=== PATIENT | female | born 1945 | race Caucasian/White ===

== ENCOUNTER 2020-03-06 15:35 | Emergency (ER) | payer MEDICARE, SELFPAY ==
[2020-03-06 15:42] VITALS: BP 156/72; PULSE 95; RESP 18; TEMP 37.1; O2SAT 100
[2020-03-06 15:54] VITALS: PULSE 95
[2020-03-06 16:02] VITALS: BP 144/71; PULSE 80; RESP 16; O2SAT 100
--- NOTE | 2020-03-06 16:47 | ED.GENADULT ---
HPI - General Adult General Chief complaint: Unspecified Stated complaint: ear pain, feel weird Time Seen by Provider: 03/06/20 16:24 History of Present Illness HPI narrative: She was at the pharmacy when she straightened up after bending over and suddnely began to feel strange. She says that she could feel her heart beat in her ear and she got dizzy. This lasted about 30 minutes. She was able to drive herself home while this was happening. She has had 1 previous episode, which was diagnosed as anxiety. Related Data Home Medications Medication Instructions Recorded Confirmed latanoprost 0.005 % eye drops 1 drop EACH EYE DAILY 06/12/19 brimonidine 0.1 % eye drops 1 drop EACH EYE Q8H 09/05/19 09/05/19 netarsudil 0.02 % eye drops 1 drop EACH EYE QPM 09/05/19 09/05/19 Allergies Allergy/AdvReac Type Severity Reaction Status Date / Time lidocaine Allergy Severe SWELLING Verified 03/06/20 15:51 Review of Systems Review of Systems: All systems reviewed & are unremarkable except as noted in HPI and below Constitutional: Constitutional: Denies fever(s) ENT: Reports dizziness and Denies sore throat Cardiovascular: Cardiovascular: Denies chest pain Respiratory: Respiratory: Denies dyspnea Gastrointestinal: Gastrointestinal: Denies abdominal pain Neurologic: Denies syncope, Denies headache(s) and Denies weakness Psychiatric: Psychiatric: Reports anxiety PMFSH Past Medical History Medical History Glaucoma Varicosities of leg Surgical History Surgical History H/O colectomy Family History Family History Mother Family history of obesity Hypertension Sibling Carcinoma of colon Father Family history of coronary artery disease Social History Social History Smoking status: Never smoker Second hand tobacco smoke exposure: No Alcohol intake: current Exam Const: General: healthy appearing, no acute distress and alert Orientation/consciousness: patient oriented x3 HENMT: Head: normal to inspection Ears: external ears normal, TM's normal bilaterally and EAC's normal Eyes: Pupils: Equal, round and reactive pupils present EOM: EOMs intact bilaterally Neck: Neck: normal visual inspection and no lymphadenopathy Chest: Chest palpation & inspection: no tenderness Resp: Effort & Inspection: normal respiratory effort Auscultation: clear to auscultation bilaterally, no rales, no rhonchi and no wheezes Cardio: Jugular venous distension: no JVD Rate: regular rate Rhythm: regular rhythm Heart sounds: no murmurs GI: Inspection: non-distended GI Palp: Yes Soft to palpation and No Tenderness to palpation present (GI) Skin: General skin exam: normal color Neuro: General: patient oriented x3 and moves all extremities Speech: normal speech Extrem: General: no edema Psych: Appearance: well kempt Affect: normal affect Course Vital Signs Vital signs: Vital Signs Temperature 37.1 C 03/06/20 15:42 Pulse Rate 95 03/06/20 15:42 Respiratory Rate 18 03/06/20 15:42 Blood Pressure 156/72 H 03/06/20 15:42 Pulse Oximetry 100 03/06/20 15:42 Temperature 37.1 C 03/06/20 15:42 Pulse Rate 76 03/06/20 17:04 Respiratory Rate 18 03/06/20 17:04 Blood Pressure 150/80 H 03/06/20 17:04 Pulse Oximetry 99 03/06/20 17:04 Medical Decision Making MDM Narrative Medical decision making narrative: It sounds like she became light headed upon standing and possibly provoked an axiety attack. She was asyptomatic before her arrival here and I do not feel that she needs further workup at this time. Medical Records Medical records reviewed: Yes I reviewed the patient's medical records. Vital Signs Vital Signs: Vital Signs Temperature 37.1 C 03/06/20 15:42 Puls
[2020-03-06 17:04] VITALS: BP 150/80; PULSE 76; RESP 18; O2SAT 99
== END 2020-03-06 17:05 | disposition home or self-care (01) ==
PROVIDERS: Emergency Provider Emergency Medicine; PCP Family Medicine
DX: R42 Dizziness and giddiness (principal); H40.9 Unspecified glaucoma; Z90.49 Acquired absence of other specified parts of digestive tract
CPT/HCPCS: 99281

== ENCOUNTER 2020-04-14 07:48 | Outpatient (CLI) | payer MEDICARE, SELFPAY ==
--- NOTE | ~2020-04-14 | CT_ITS ---
EXAMINATION: CT abdomen pelvis w con INDICATION: Unspecified abdominal pain TECHNIQUE: Computed tomographic images of the abdomen and pelvis were obtained after the administrati on of 100 cc of Omnipaque 350 intravenous contrast. The dose-length product (DLP) was 665.38 mGy-cm. Automated exposure control and iterative reconstruction technique were employed. COMPARISON: 02/17/2018 FINDINGS: There are unchanged tiny nodules of the right lower lobe, most consistent with old granulom atous disease. The heart size is normal. There is a small sliding hiatal hernia. The gallbladder is s urgically absent. The liver, spleen, pancreas, and adrenal glands are normal. Cysts of the kidneys me asure up to 4.3 cm on the left. There is a 1.8 cm soft tissue density mass of the left mid kidney. No pathologically enlarged abdominal or pelvic lymph nodes are identified. There is no free intraperito marisabel gas or evidence of bowel obstruction. The appendix is normal. There is subtle edematous pericol ic fat stranding adjacent to the ascending colon. Colonic diverticulosis is noted. There is mild lumb ar spondylosis. There are tiny fat-containing periumbilical hernias. IMPRESSION: 1. Subtle fat stranding adjacent to the ascending colon which could reflect mild uncomplicated divert iculitis. 2. Indeterminate lesion of the left mid kidney which could reflect proteinaceous cyst versus neoplasm . Follow-up with CT or MRI without and with contrast is recommended. Reviewed, dictated and finalized at location B. IMPRESSION: 1. Subtle fat stranding adjacent to the ascending colon which could reflect mil d uncomplicated diverticulitis. 2. Indeterminate lesion of the left mid kidney which could reflect proteinaceou s cyst versus neoplasm. Follow-up with CT or MRI without and with contrast is r ecommended.
== END 2020-04-14 07:49 | disposition home or self-care (01) ==
PROVIDERS: PCP Family Medicine; Visit Provider Physician Assistant
DX: R10.9 Unspecified abdominal pain (principal); N28.89 Other specified disorders of kidney and ureter
CPT/HCPCS: 74177; Q9967

== ENCOUNTER 2020-05-21 08:59 | Observation (INO) | payer MEDICARE, SELFPAY ==
[2020-05-21] VITALS (9 sets, daily range): BP systolic 125–161; BP diastolic 61–77; PULSE 68–101; RESP 15–19; TEMP 36.2–37.2; O2SAT 97–100; BMI 34.4
--- NOTE | ~2020-05-21 | CT_ITS ---
EXAMINATION: CT abdomen pelvis w con DATE: 05/21/2020 09:46 INDICATION: Abdominal pain TECHNIQUE: Computed tomography (CT) of the abdomen and pelvis was performed with 100 mL Omnipaque-350 intravenous contrast. Automated exposure control and iterative reconstruction technique were employe d. The dose-length product was 754.18 mGy-cm. COMPARISON: 04/14/2020 and 02/17/2018 FINDINGS: Stable appearance of a cluster small chronic nodules in the posterior basilar right lower lobe likely infectious/inflammatory in etiology. Heart size is normal. No pericardial or pleural effusion. Kristina cystectomy clips at the gallbladder fossa. Liver, spleen, pancreas and bilateral adrenal glands are n ormal. Bilateral renal cysts, the largest measuring 4.3 cm on the left. No interval change in a 1.8 c m soft tissue density left renal lesion indeterminate for complex cyst versus solid neoplasm. Normal appendix. Moderate scattered diverticulosis including along the sigmoid colon where there is asymmetr ic wall thickening and inflammatory stranding along the posterior wall consistent with diverticulitis . Small bowel is normal with no obstruction. Bladder is normal. The uterus is not identified and has likely been surgically resected. No abscess or free intraperitoneal gas or fluid. No pathologically e nlarged abdominal or pelvic lymphadenopathy. T11 and T12 hemangiomas. Chronic T2 compression fracture with mild anterior wedging and more prominent depression of the central endplate. IMPRESSION: 1. Worsening but still radiographically uncomplicated diverticulitis along the ascending colon with i ncrease in degree of wall thickening and inflammatory stranding. 2. Unchanged indeterminate 1.8 cm left renal lesion statistically most likely to represent a proteina ceous/hemorrhagic cyst but differential includes renal cell carcinoma and would recommend follow-up p re and postcontrast MRI or CT. Reviewed, dictated and finalized at location B. IMPRESSION: 1. Worsening but still radiographically uncomplicated diverticulitis along the ascending colon with increase in degree of wall thickening and inflammatory str anding. 2. Unchanged indeterminate 1.8 cm left renal lesion statistically most likely t o represent a proteinaceous/hemorrhagic cyst but differential includes renal ce ll carcinoma and would recommend follow-up pre and postcontrast MRI or CT.
--- NOTE | 2020-05-21 09:23 | ED.ABDPAIN ---
HPI - Abdominal Pain General Chief Complaint: Abdominal Pain Stated Complaint: abd pain Time Seen by Provider: 05/21/20 09:00 Source: RN notes reviewed History of Present Illness HPI narrative: Patient presents emergency department from home for abdominal pain. Patient states symptoms began yesterday. Pain is located in the right lower abdomen and does not radiate described as cramping in nature. Patient states she is had diverticulitis 4 times since February and this feels like previous diverticulitis. She denies any fevers or chills chest pain shortness of breath nausea vomiting diarrhea or any other symptoms. She states that her diverticulitis has been managed by Dr. Allen. Her last colonoscopy was approximately 6 years ago Related Data Home Medications Medication Instructions Recorded Confirmed latanoprost 0.005 % eye drops 1 drop EACH EYE DAILY 06/12/19 05/21/20 brimonidine 0.1 % eye drops 1 drop EACH EYE Q8H 09/05/19 05/21/20 netarsudil 0.02 % eye drops 1 drop EACH EYE QPM 09/05/19 05/21/20 Allergies Allergy/AdvReac Type Severity Reaction Status Date / Time lidocaine Allergy Severe SWELLING Verified 05/21/20 09:16 Review of Systems Review of Systems: Narrative: Gen.: Denies fevers or chills ENT: Denies congestion Respiratory: Denies shortness of breath or cough CV: Denies chest pain or palpitations GI: See HPI denies burning, urgency, frequency or hematuria Musculoskeletal: Denies back pain or muscle pain Neuro: Denies numbness, tingling, weakness or focal weakness Skin: Denies rash Except as documented, all other systems reviewed and negative [facility] Past Medical History Medical History Diverticulitis Glaucoma Varicosities of leg Surgical History Surgical History H/O colectomy Family History Family History Mother Family history of obesity Hypertension Sibling Carcinoma of colon Father Family history of coronary artery disease Social History Social History Smoking status: Never smoker Second hand tobacco smoke exposure: No Alcohol intake: current Gender identity (if verbalized by the patient): Female Exam Narrative: Exam Narrative: APPEARANCE: No acute distress, nontoxic, resting in bed HEENT: Normocephalic, atraumatic, OMM RESPIRATORY: No respiratory distress, clear to auscultation bilaterally with no rhonchi wheezing or rales CARDIOVASCULAR: RRR s murmur ABDOMINAL: Soft, nondistended, tender palpation right lower quadrant, no tenderness in right upper quadrant, left upper quadrant left lower quadrant no rebound or guarding MUSCULOSKELETAl: Moves all extremities. No clubbing, cyanosis or edema. NEURO: Awake and alert. Following commands, speech normal, no focal deficits SKIN:: Warm, dry. Normal Color PSYCHIATRIC: Normal affect/mood Course Course Emergency Course: Reviewed old records. [facility] for diverticul[facility] on April 15. Last colonoscopy was in 2012 Dr Hernandez presentation work-up. Agrees with admission at this time with consult to GI Discussed with patient and family results of workup and diagnosis. Discussed need for admission. Patient and family understand and agree to current treatment plan Vital Signs Vital signs: Vital Signs Temperature 99.0 F 05/21/20 09:11 Pulse Rate 101 H 05/21/20 09:11 Respiratory Rate 18 05/21/20 09:11 Blood Pressure 161/77 H 05/21/20 09:11 Pulse Oximetry 98 05/21/20 09:11 Temperature 99.0 F 05/21/20 09:11 Pulse Rate 76 05/21/20 10:46 Respiratory Rate 18 05/21/20 09:11 Blood Pressure 138/69 05/21/20 10:46 Pulse Oximetry 98 05/21/20 10:46 MDM - Abdominal Pain Lab Data Result diagrams: 05/21/20 09:26 05/21/20 09:41 Labs:
[2020-05-21] MEDS: SODIUM CHLORIDE 0.9% IV 1,000 ML 999 ML IV CONT (09:24)
[2020-05-21 09:37] LABS: Hematocrit 40.6 % (37.0-47.0); Hemoglobin 13.8 g/dL (12.0-15.0); Mean Corpuscular Volume 88.3 fl (80-100); Mean Platelet Volume 9.7 fl (7.4-10.4); Platelet Count Result 386 k/mm3 (150-375); Red Cell Distribution Width 12.8 % (11.5-14.5)
[2020-05-21 09:42] LABS: Estimated CRCL calculation 48 ml/min; Estimated Glomerular Filt Rate > 60
[2020-05-21 09:47] LABS: Atypical Lymphocytes Present; Band Neutrophils Percent 1 % (0-6); Monocytes Percent Manual 6 % (3-9); Neutrophils Percent Manual 89 % (46-73); Platelet Estimate Adequate (Adequate); Total Cells Counted 100
[2020-05-21 09:48] LABS: Alanine Aminotransferase 25 U/L (4-35); Albumin Level 4.3 g/dL (3.5-5.1); Alkaline Phosphatase 69 U/L (38-126); Anion Gap 12 mmol/L (8-16); Aspartate Amino Transferase 24 U/L (14-36); Bilirubin,Total 0.6 mg/dL (0.2-1.3); Blood Urea Nitrogen 16 mg/dL (7-17); Calcium 9.8 mg/dL (8.4-10.2); Carbon Dioxide 24 mmol/L (22-30); Chloride 98 mmol/L (98-107); Estimated CRCL calculation 48 ml/min; Estimated Glomerular Filt Rate > 60; Glucose 126 mg/dL (65-105); Lipase 61 U/L (23-300); Potassium 4.4 mmol/L (3.4-5.0); Sodium 134 mmol/L (137-145)
[2020-05-21 10:47] LABS: Lactic Acid Reflex 1.1 mmol/L (0.7-2.1)
[2020-05-21 11:37] LABS: Add Urine Microscopic? YES; Appearance Urine Clear (Clear); Bilirubin Urine Negative (Negative); Blood Urine 1+ (Negative); Color Urine Colorless (Yellow); Glucose Urine UA Negative (Negative); Ketones Urine Negative (Negative); Leukocyte Esterase Ur Negative LEU/UL (Negative); Nitrate Urine Negative (Negative); Protein Urine Negative (Negative); RBC Urine 0-2 /hpf (0-2); Squamous Epithelial Cell Urine Rare /hpf (Few); Urobilinogen Urine Negative mg/dL (<2.0); WBC Urine 0-3 /hpf
[2020-05-21 11:38] LABS: Specific Grav Ur 1.033 (1.001-1.035)
--- NOTE | 2020-05-21 11:52 | ADMGEN ---
This patient, Klaudia Stafford, was admitted to 2 Medical Room 257-01. Patient/family oriented to hospital policies and general routines including ID bracelet, bed and alarms, visiting hours, pain management, procedures, bathroom and other care routines, personal items, smoking policy, room service/diet, and visiting hours. Information on how to activate the Rapid Response Team has been discussed. Patient/Family are encouraged to report perceived risks to care and to ask questions if they do not understand what they are told or what they should do.
--- NOTE | 2020-05-21 12:41 | PM.IMHP ---
H&P: HPI History of Present Illness Date/Time: 05/21/20 12:41 PATIENT IS ADMITTED UNDER OBSERVATION Chief complaint: sepsis,diverticulitis Narrative: Klaudia Stafford is a 75 year old female with diverticulosis, HTN and recent diverticulitis here for abdominal pain and found to have recurrent diverticulitis. Patient is known to have diverticulosis by a colonoscopy [address] Gilliam. Also seen was a distal sigmoid polyp. Pathology showing benign polyp. Patient presented to her primary care doctor in February with bilateral lower quadrant pain. Was felt that she had diverticulitis although patient refused a CT scan at that time. She was treated with ciprofloxacin and Flagyl with benefit. This was her 1st episode of diverticulitis. She did well until April 05 when she presented back to the primary care doctor with similar pain mostly in the right lower quadrant. She did have a CT of the abdomen pelvis on April 14 which showed questionable ascending colon fat stranding possibly diverticulitis. She was treated with another round of ciprofloxacin and Flagyl with benefit. She remained asymptomatic until last evening when she began to develop again right lower quadrant pain. She had been on a low-fiber diet but was told to increase her fiber recently. There is no fever or chills. Her temperature was 99? at home. She felt cold but no shaking chills. No nausea or vomiting. Her abdominal pain seemed to be worse with walking. She denies any eye pain the has chronic eye symptoms from glaucoma and cataracts. No chest pain or palpitations. No shortness of breath or cough. No dysuria or hematuria. No recent neurologic symptoms. No weight changes. No diabetes or thyroid disease. No melena or hematochezia. Because of the recurrent nature of her symptoms she presented to the emergency room for evaluation. In the emergency room she was tachycardic to 101 a blood pressure 161/77. [place] [address] with a left shift. Lactic acid level is normal. CT of the abdomen pelvis showing worsening findings but still felt to be uncomplicated diverticulitis along the ascending colon. Also noted was a 1.8 cm left renal cyst felt to be proteinaceous cyst but cannot exclude renal cell. She was started on IV fluids and Zosyn. She was admitted for further care. Review of Systems Review of Systems: All systems reviewed & are unremarkable except as noted in HPI and below [facility] Past Medical History Medical History (Updated 05/22/20 @ 08:13 by Kenny Payne MD) Anxiety Cataract left eye Diverticulosis with hx of diverticulitis Essential (primary) hypertension Gastro-esophageal reflux disease without esophagitis Glaucoma Leukocytosis Lower abdominal pain Varicosities of leg Surgical History Surgical History History of cholecystectomy 2010 Hx of hysterectomy for benign disease With bilateral oophorectomy Family History Family History Mother Family history of obesity Hypertension Sibling Carcinoma of colon Father Family history of coronary artery disease Social History Social History (Updated 05/21/20 @ 14:03 by Kieran Hernandez MD) Social History: Lives at home with her . No pets. She drinks 1 alcoholic drink per month. Lifelong nonsmoker. No drug use. Full code. She nominated her to be the individual would make medical decisions for her if she is not able. Smoking status: Never smoker Second hand tobacco smoke exposure: Yes (as a child) Alcohol intake: current Drinks per week: 1 Substance use: never Substance use type: does not use Gender identity (if verbalized by the patient): Female Spiritual care concerns: No Meds Home Medications and Allergies Home Medications Medication Instructions Recorded Confirmed Type latanoprost 0.005 % eye drops 1 drop EACH EYE
[2020-05-21] MEDS: LACTATED RINGERS 1,000 ML 125 ML IV CONT ×2 (13:27→20:55)
--- NOTE | 2020-05-21 15:22 | WPDGICN ---
Assessment and Plan Assessment and plan (1) Diverticulitis: Code(s): K57.92 - Diverticulitis of intestine, part unspecified, without perforation or abscess without bleeding Status: Acute Assessment and Plan: recurrent episodes of diverticulitis since February admitted to hospital, continue with iv antibiotics and monitor eventually will need another colonoscopy but await 6-8 weeks until asymptomatic (2) Sepsis: Code(s): A41.9 - Sepsis, unspecified organism Status: Acute Assessment and Plan: medical treatment (3) Leukocytosis: Code(s): D72.829 - Elevated white blood cell count, unspecified Status: Acute Assessment and Plan: monitor (4) Essential (primary) hypertension: Code(s): I10 - Essential (primary) hypertension Status: Acute GI Consult Note Consult date/time: 05/21/20 15:22 Reason for consult: diverticulitis HPI: Klaudia Stafford is a 75 year old female with history of diverticulosis, HTN with last colonoscopy [address] Gilliam that had diverticulosis and small sigmoid polyp. Since February this year she has been having intermittent pain in rlq, diagnosed with diverticulitis and treated with oral antibiotics (did not require hospitalization). Again had another attack and had CT of the abdomen pelvis on April 14 which showed questionable ascending colon fat stranding possibly diverticulitis, treated again with another round of ciprofloxacin and Flagyl with benefit. This time she came with worsening pain in same area, severe, had low grade fever, also was tachycardic with wbc [id number] with a left shift. Lactic acid level is normal. CT of the abdomen pelvis showing worsening findings but still felt to be uncomplicated diverticulitis along the ascending colon. She is admitted for medical care and iv antibiotics. Review of Systems Constitutional: Constitutional: Denies headache(s) and Denies weakness Eyes: Eyes: Denies blurry vision ENT: Reports Normal hearing present, Denies headache(s) and Denies neck pain Cardiovascular: Cardiovascular: Denies chest pain and Denies dyspnea Respiratory: Respiratory: Denies dyspnea Gastrointestinal: Gastrointestinal: Reports no additional gastrointestinal complaints Genitourinary: Genitourinary: Denies dysuria Musculoskeletal: Musculoskeletal: Denies neck pain Integumentary/Breasts: Skin/Breast: Denies dry skin Neurologic: Reports Normal hearing present, Denies headache(s) and Denies weakness Psychiatric: Psychiatric: Denies anxiety Endocrine: Endocrine: Denies change in body appearance Hematologic/Lymphatic: Hematologic/Lymphatic: Denies easy bleeding Allergic/Immunologic: Allergic/Immunologic: Denies urticaria PMFSH Past Medical History Medical History Anxiety Cataract left eye Diverticulosis with hx of diverticulitis Essential (primary) hypertension Gastro-esophageal reflux disease without esophagitis Glaucoma Varicosities of leg Surgical History Surgical History History of cholecystectomy 2011 Hx of hysterectomy for benign disease With bilateral oophorectomy Family History Family History Mother Family history of obesity Hypertension Sibling Carcinoma of colon Father Family history of coronary artery disease Social History Social History (Updated 05/21/20 @ 14:03 by Kieran Hernandez MD) Social History: Lives at home with her . No pets. She drinks 1 alcoholic drink per month. Lifelong nonsmoker. No drug use. Full code. She nominated her to be the individual would make medical decisions for her if she is not able. Smoking status: Never smoker Second hand tobacco smoke exposure: Yes (as a child) Alcohol intake: current Drinks per week: 1 Substance use: never Substance use type: does not
--- NOTE | 2020-05-21 20:24 | PHAR ---
HOME MEDICATION VERIFIED BY PHARMACY: BRIMONIDINE 0.1% EYE DROPS INSTILL 1 DROP IN BOTH EYES TID RX#[id number]
[2020-05-21] MEDS: BRIMONIDINE TARTRATE 0.1% 5 ML OPHTH DROPS 1 DROP EACH EYE (20:53)
[2020-05-21] MEDS: METOPROLOL SUCCINATE EXT REL 50 MG TABCR PO (20:53)
[2020-05-22] MEDS: LACTATED RINGERS 1,000 ML 125 ML IV CONT (04:59)
[2020-05-22] MEDS: BRIMONIDINE TARTRATE 0.1% 5 ML OPHTH DROPS 1 DROP EACH EYE ×3 (05:03→21:16)
[2020-05-22 06:00] VITALS: BP 144/70; PULSE 81; RESP 18; TEMP 36.7; O2SAT 100
[2020-05-22 06:13] LABS: Basophils Absolute Auto 0.1 K/mm3 (0.0-0.1); Basophils Percent Auto 0.6 % (0.2-1.2); Eosinophils Absolute Auto 0.2 K/mm3 (0-0.3); Eosinophils Percent Auto 1.5 % (0-4.4); Hematocrit 37.6 % (37.0-47.0); Hemoglobin 12.5 g/dL (12.0-15.0); Immature Granulocyte Absolute 0.03 K/mm3 (0.00-0.031); Immature Granulocyte Percent A 0.3 % (0-0.5); Lymphocytes Absolute Auto 1.64 K/mm3 (0.9-3.2); Lymphocytes Percent Auto 16.4 % (18.3-44.2); Mean Corpuscular HGB Conc 33.2 g/dl (32-36); Mean Corpuscular Volume 90.2 fl (80-100); Mean Platelet Volume 9.8 fl (7.4-10.4); Monocytes Absolute Auto 1.2 K/mm3 (0.1-0.6); Monocytes Percent Auto 11.6 % (2.6-8.5); Neutrophils Percent Auto 69.6 % (45.5-73.1); Platelet Count Result 301 k/mm3 (150-375); Red Blood Count 4.17 M/mm3 (4.2-5.4); Red Cell Distribution Width 13.1 % (11.5-14.5)
[2020-05-22 06:38] LABS: Alanine Aminotransferase 21 U/L (4-35); Albumin Level 3.7 g/dL (3.5-5.1); Alkaline Phosphatase 57 U/L (38-126); Anion Gap 7 mmol/L (8-16); Aspartate Amino Transferase 22 U/L (14-36); Bilirubin,Total 0.8 mg/dL (0.2-1.3); Blood Urea Nitrogen 10 mg/dL (7-17); Calcium 9.1 mg/dL (8.4-10.2); Carbon Dioxide 30 mmol/L (22-30); Chloride 102 mmol/L (98-107); Estimated CRCL calculation 48 ml/min; Estimated Glomerular Filt Rate > 60; Glucose 98 mg/dL (65-105); Potassium 4.2 mmol/L (3.4-5.0); Sodium 139 mmol/L (137-145)
--- NOTE | 2020-05-22 08:12 | WPDGIPROGNO ---
Progress Note: A&P Assessment and Plan (1) Diverticulitis: Code(s): K57.92 - Diverticulitis of intestine, part unspecified, without perforation or abscess without bleeding Status: Acute Assessment and Plan: recurrent diverticulitis, doing better today she would like to go home but I recommend another day of iv antibiotics and probably tomorrow she can go home with oral antibiotics eventually will need colonoscopy in 6-8 weeks (2) Lower abdominal pain: Code(s): R10.30 - Lower abdominal pain, unspecified Status: Acute Assessment and Plan: improving, tolerating liquid diet (3) Leukocytosis: Code(s): D72.829 - Elevated white blood cell count, unspecified Status: Acute Assessment and Plan: resolved, on iv antibiotics (4) Essential (primary) hypertension: Code(s): I10 - Essential (primary) hypertension Status: Acute Subjective Date/time seen: 05/22/20 08:12 Interval history: she is feeling better, still with pain in rlq but improving. Had a normal BM earlier, tolerating liquid diet. She would like to go home soon. Review of Systems Review of Systems: All systems reviewed & are unremarkable except as noted in HPI and below Exam Const: General: comfortable and no acute distress HENMT: General nose exam: Normal nares present Eyes: General: appearance normal, both eyes and all related structures Neck: Neck: no JVD Resp: Auscultation: clear to auscultation bilaterally Cardio: Rate: regular rate Rhythm: regular rhythm GI: Inspection: non-distended GI Palp: Yes Soft to palpation and Yes Tenderness to palpation present (GI) (mild ttp in rlq, no rebound or guarding.) Auscultation: normal bowel sounds Skin: General skin exam: normal color Neuro: General: gait normal Speech: normal speech Extrem: General: normal to inspection Psych: Mental Status: mental status grossly normal Objective Data Vital Signs Vital Signs: Vital Signs - 24 hr 05/21/20 09:11 05/21/20 09:31 05/21/20 10:02 Temperature 99.0 F Pulse Rate 101 H 76 74 Respiratory Rate 18 Blood Pressure 161/77 H 142/64 H 132/62 Pulse Oximetry 98 98 97 05/21/20 10:46 05/21/20 12:04 05/21/20 12:10 Temperature 98.1 F 98.1 F Pulse Rate 76 75 75 Respiratory Rate 19 19 Blood Pressure 138/69 140/72 140/72 Pulse Oximetry 98 99 99 05/21/20 14:00 05/21/20 20:53 05/21/20 21:57 Temperature 97.1 F L 97.8 F Pulse Rate 68 78 73 Respiratory Rate 15 16 Blood Pressure 125/61 143/65 H Pulse Oximetry 99 100 05/22/20 06:00 Temperature 98.0 F Pulse Rate 81 Respiratory Rate 18 Blood Pressure 144/70 H Pulse Oximetry 100 Intake/Output Intake/Output: Intake & Output 05/19/20 05/20/20 05/21/20 05/22/20 23:59 23:59 23:59 23:59 Intake Total 2640 1450 Output Total 350 2050 Balance 2290 -600 Meds/Results Medications: Active Medications Generic Name Dose Route Start Last Admin Trade Name Freq PRN Reason Stop Dose Admin Alprazolam 0.25 mg 05/21/20 14:09 Alprazolam (*Crx) 0.25 Mg Tablet PO BID PRN anxiety Brimonidine Tartrate 1 drop 05/21/20 22:00 05/22/20 05:03 Brimonidine Tartrate 0.1% 5 Ml Ophth Drops EACH EYE 1 drop Q8HR JEFFERSON Administration Enoxaparin Sodium 40 mg 05/22/20 09:00 Enoxaparin 40 Mg/0.4 Ml Syringe SUB-Q DAILY JEFFERSON Piperacillin/Tazobactam/Dextrose 3.375 gm in 50 mls @ 100 mls/hr 05/21/20 18:00 05/22/20 05:30 Zosyn 3.375 Gm/D5w 50ml Pm IVPB Infused Q6HR JEFFERSON Infusion Lactated Ringer's 1,000 mls @ 125 mls/hr 05/21/20 10:35 05/22/20 04:59 Lr - Lactated Ringers Iv IV CONT 125 mls/hr .Q8H JEFFERSON Administration Latanoprost 1 drop 05/21/20 21:00 05/22/20 05:04 Latanoprost 0.005% Op Soln 2.5 Ml Btl EACH EYE Not Given HS JEFFERSON Lisinopril 40 mg 05/22/20 09:00 Lisinopril 20 Mg Tablet PO DAILY JEFFERSON Metoprolol Succinate 50 mg 05/21/20 21:00 05/21/20 20:53 Metoprolol Rodriguez
--- NOTE | 2020-05-22 09:30 | PC.NURSE ---
I notified pharmacy that I was missing all of the patient's 0900 medications. They notified me that they will tube the medications to the unit.
[2020-05-22] MEDS: lisinopriL 20 MG TABLET 40 MG PO (09:57)
[2020-05-22] MEDS: PANTOPRAZOLE 40 MG TABLET PO (09:57)
[2020-05-22] MEDS: ENOXAPARIN 40 MG/0.4 ML SYRINGE SUB-Q (09:57)
[2020-05-22] MEDS: SIMVASTATIN 20 MG TABLET 40 MG PO (09:57)
--- NOTE | 2020-05-22 12:58 | PHAR ---
HOME MEDICATION VERIFIED BY PHARMACY: RHOPRESSA EYE DROPS INSTILL 1 DROP IN BOTH EYES EVERY EVENING [id number]
[2020-05-22 14:00] VITALS: BP 152/71; PULSE 84; RESP 14; TEMP 36.7; O2SAT 100
--- NOTE | 2020-05-22 14:34 | PM.IMPN ---
Progress Note: A&P Assessment and Plan (1) Diverticulitis: Code(s): K57.92 - Diverticulitis of intestine, part unspecified, without perforation or abscess without bleeding Status: Acute Assessment and Plan: Patient admitted to [address] [place] [address] for acute diverticulitis. She was started on IV Zosyn. WBC normal now. GI consulted and following. Appreciate their input. She is tolerating clear liquid diet; will advance to low fiber diet. She will need colonoscopy after this initial event passes. Plan for discharge tomorrow. (2) Essential (primary) hypertension: Code(s): I10 - Essential (primary) hypertension Status: Acute Assessment and Plan: Blood pressure reviewed on 05/22. Blood pressure well contolled. Continue metoprolol and lisinopril. Continue to monitor blood pressure closely. (3) Gastro-esophageal reflux disease without esophagitis: Code(s): K21.9 - Gastro-esophageal reflux disease without esophagitis Status: Acute Assessment and Plan: Stable. Resume proton pump inhibitor. (4) Other hyperlipidemia: Code(s): E78.49 - Other hyperlipidemia Status: Acute Assessment and Plan: LFTs normal. Continue statin therapy. (5) DVT prophylaxis: Code(s): Z29.9 - Encounter for prophylactic measures, unspecified Status: Acute Assessment and Plan: Lovenox Subjective Date/time seen: 05/22/20 14:34 Interval history: Date of service: 05/22 75yo female here for abd pain and found to have diverticulitis. She feels better. Still with pain but improved. Having loose stools. No melana or hematochezia. Feels she could eat more now. Exam Narrative: Exam Narrative: AF 98.0 152/71 84 14 100 % ra Gen - NARD Chest - CTA bilaterally CV - RRR S1/S2. Abd - abdomen was soft. Nondistended. Positive bowel sounds. mild right abd/flank pain Ext - no pedal edema. Psych - normal mood and affect. Skin - warm and dry. Objective Data Vital Signs Vital Signs: Vital Signs - 24 hr 05/21/20 20:53 05/21/20 21:57 05/22/20 06:00 Temperature 97.8 F 98.0 F Pulse Rate 78 73 81 Respiratory Rate 16 18 Blood Pressure 143/65 H 144/70 H Pulse Oximetry 100 100 05/22/20 14:00 Temperature 98.0 F Pulse Rate 84 Respiratory Rate 14 Blood Pressure 152/71 H Pulse Oximetry 100 Intake/Output Intake/Output: Intake & Output 05/19/20 05/20/20 05/21/20 05/22/20 23:59 23:59 23:59 23:59 Intake Total 2640 2160 Output Total 350 2050 Balance 2290 110 Meds/Results Medications: Active Medications Generic Name Dose Route Start Last Admin Trade Name Freq PRN Reason Stop Dose Admin Acetaminophen 650 mg 05/22/20 12:01 Acetaminophen 325 Mg Tablet PO Q6H PRN Mild Pain (1-3) or Fever Alprazolam 0.25 mg 05/21/20 14:09 Alprazolam (*Crx) 0.25 Mg Tablet PO BID PRN anxiety Brimonidine Tartrate 1 drop 05/21/20 22:00 05/22/20 14:16 Brimonidine Tartrate 0.1% 5 Ml Ophth Drops EACH EYE 1 drop Q8HR JEFFERSON Administration Enoxaparin Sodium 40 mg 05/22/20 09:00 05/22/20 09:57 Enoxaparin 40 Mg/0.4 Ml Syringe SUB-Q 40 mg DAILY JEFFERSON Administration Piperacillin/Tazobactam/Dextrose 3.375 gm in 50 mls @ 100 mls/hr 05/21/20 18:00 05/22/20 11:59 Zosyn 3.375 Gm/D5w 50ml Pm IVPB Infused Q6HR JEFFERSON Infusion Lactated Ringer's 1,000 mls @ 125 mls/hr 05/21/20 10:35 05/22/20 04:59 Lr - Lactated Ringers Iv IV CONT 125 mls/hr .Q8H JEFFERSON Administration Latanoprost 1 drop 05/21/20 21:00 05/22/20 05:04 Latanoprost 0.005% Op Soln 2.5 Ml Btl EACH EYE Not Given HS JEFFERSON Lisinopril 40 mg 05/22/20 09:00 05/22/20 09:57 Lisinopril 20 Mg Tablet PO 40 mg DAILY JEFFERSON Administration Metoprolol Succinate 50 mg 05/21/20 21:00 05/21/20 20:53 Metoprolol Succinate Ext Rel 50 Mg Tabcr PO 50 mg HS JEFFERSON Administration Netarsudil [ 1 drop 05/22/20 21:
[2020-05-22] MEDS: LATANOPROST 0.005% OP SOLN 2.5 ML BTL 1 DROP EACH EYE (20:00)
[2020-05-22 20:54] VITALS: PULSE 84
[2020-05-22] MEDS: METOPROLOL SUCCINATE EXT REL 50 MG TABCR PO (20:54)
[2020-05-22 22:00] VITALS: BP 140/68; PULSE 83; RESP 16; TEMP 36.9; O2SAT 99
[2020-05-23] MEDS: BRIMONIDINE TARTRATE 0.1% 5 ML OPHTH DROPS 1 DROP EACH EYE (05:16)
[2020-05-23 06:00] VITALS: BP 149/77; PULSE 85; RESP 16; TEMP 36.8; O2SAT 98
[2020-05-23] MEDS: lisinopriL 20 MG TABLET 40 MG PO (08:00)
[2020-05-23] MEDS: SIMVASTATIN 20 MG TABLET 40 MG PO (08:00)
[2020-05-23] MEDS: PANTOPRAZOLE 40 MG TABLET PO (08:00)
[2020-05-23] MEDS: ENOXAPARIN 40 MG/0.4 ML SYRINGE SUB-Q (08:00)
--- NOTE | 2020-05-23 11:04 | WPDGIPROGNO ---
Progress Note: A&P Assessment and Plan (1) Diverticulitis: Code(s): K57.92 - Diverticulitis of intestine, part unspecified, without perforation or abscess without bleeding Status: Acute Assessment and Plan: she can go home with 7-10 more days of oral antibiotics, then follow up in office in 2 weeks will also need a colonoscopy in ~ 6 weeks low fiber diet for now (2) Leukocytosis: Code(s): D72.829 - Elevated white blood cell count, unspecified Status: Acute Assessment and Plan: resolved (3) Lower abdominal pain: Code(s): R10.30 - Lower abdominal pain, unspecified Status: Acute Assessment and Plan: improved and much better Subjective Date/time seen: 05/23/20 11:04 Interval history: pain has improved, now 4 out of 10, on admission 7. She is also tolerating diet. She would like to go home and complete treatment as outpatient. Afebrile. Review of Systems Review of Systems: All systems reviewed & are unremarkable except as noted in HPI and below Exam Const: General: comfortable and no acute distress HENMT: General nose exam: Normal nares present Eyes: General: appearance normal, both eyes and all related structures Neck: Neck: no JVD Resp: Auscultation: clear to auscultation bilaterally Cardio: Rate: regular rate Rhythm: regular rhythm GI: Inspection: non-distended GI Palp: Yes Soft to palpation and Yes Tenderness to palpation present (GI) (minimal ttp in rlq, no guarding or rebound) Auscultation: normal bowel sounds Skin: General skin exam: normal color Neuro: General: gait normal Speech: normal speech Extrem: General: normal to inspection Psych: Mental Status: mental status grossly normal Objective Data Vital Signs Vital Signs: Vital Signs - 24 hr 05/22/20 14:00 05/22/20 20:54 05/22/20 22:00 Temperature 98.0 F 98.5 F Pulse Rate 84 84 83 Respiratory Rate 14 16 Blood Pressure 152/71 H 140/68 Pulse Oximetry 100 99 05/23/20 06:00 Temperature 98.3 F Pulse Rate 85 Respiratory Rate 16 Blood Pressure 149/77 H Pulse Oximetry 98 Intake/Output Intake/Output: Intake & Output 05/20/20 05/21/20 05/22/20 05/23/20 23:59 23:59 23:59 23:59 Intake Total 2640 3860 750 Output Total 350 3050 900 Balance 2290 810 -150 Meds/Results Medications: Active Medications Generic Name Dose Route Start Last Admin Trade Name Freq PRN Reason Stop Dose Admin Acetaminophen 650 mg 05/22/20 12:01 Acetaminophen 325 Mg Tablet PO Q6H PRN Mild Pain (1-3) or Fever Alprazolam 0.25 mg 05/21/20 14:09 Alprazolam (*Crx) 0.25 Mg Tablet PO BID PRN anxiety Brimonidine Tartrate 1 drop 05/21/20 22:00 05/23/20 05:16 Brimonidine Tartrate 0.1% 5 Ml Ophth Drops EACH EYE 1 drop Q8HR JEFFERSON Administration Enoxaparin Sodium 40 mg 05/22/20 09:00 05/23/20 08:00 Enoxaparin 40 Mg/0.4 Ml Syringe SUB-Q 40 mg DAILY JEFFERSON Administration Piperacillin/Tazobactam/Dextrose 3.375 gm in 50 mls @ 100 mls/hr 05/21/20 18:00 05/23/20 11:03 Zosyn 3.375 Gm/D5w 50ml Pm IVPB 100 mls/hr Q6HR JEFFERSON Administration Latanoprost 1 drop 05/21/20 21:00 05/22/20 20:00 Latanoprost 0.005% Op Soln 2.5 Ml Btl EACH EYE 1 drop HS JEFFERSON Administration Lisinopril 40 mg 05/22/20 09:00 05/23/20 08:00 Lisinopril 20 Mg Tablet PO 40 mg DAILY JEFFERSON Administration Metoprolol Succinate 50 mg 05/21/20 21:00 05/22/20 20:54 Metoprolol Succinate Ext Rel 50 Mg Tabcr PO 50 mg HS JEFFERSON Administration Netarsudil [ 1 drop 05/22/20 21:30 05/22/20 20:55 Rhopressa] 0.02 % EACH EYE 06/21/20 21:31 1 drop Drops (Home Med) DAILY@2130 JEFFERSON Administration Pantoprazole Sodium 40 mg 05/22/20 09:00 05/23/20 08:00 Pantoprazole 40 Mg Tablet PO 40 mg QAM JEFFERSON Administration Simvastatin 40 mg 05/22/20 09:00 05/23/20 08:00 Simvastatin 20 Mg Tablet PO 40 mg DAILY JEFFERSON Administration Radiology Results: ITS Im
--- NOTE | 2020-05-23 12:12 | PM.DS ---
DS: Admitting Diagnosis Admitting Diagnosis Admitting Diagnosis: sepsis,diverticulitis DS: Discharge Diagnosis Discharge Diagnosis (1) Diverticulitis: Code(s): K57.92 - Diverticulitis of intestine, part unspecified, without perforation or abscess without bleeding Status: Acute Assessment and Plan: Patient presented to the ED with abdominal pain and found to have acute diverticulitis. CT scan showing worsening but still radiographically uncomplicated diverticulitis along the ascending colon with increase in degree of wall thickening and inflammatory stranding. WBC 20K. She was started on Zosyn and admitted to [address] [place] [address] for further care. During her hospital course, andominal pin improved and WBC normalized. GI consulted and followed along. She tolerated clear liquid diet and this was advanced to a low fiber diet. Patient feels well today and is requesting discharge. Patient will need outpatient colonoscopy which was discussed. (2) Essential (primary) hypertension: Code(s): I10 - Essential (primary) hypertension Status: Acute Assessment and Plan: Blood pressure was monitored. Blood pressure remained well controlled. We continued metoprolol and lisinopril. (3) Gastro-esophageal reflux disease without esophagitis: Code(s): K21.9 - Gastro-esophageal reflux disease without esophagitis Status: Acute Assessment and Plan: Stable. We continued home proton pump inhibitor. (4) Other hyperlipidemia: Code(s): E78.49 - Other hyperlipidemia Status: Acute Assessment and Plan: LFTs normal. We continued home statin therapy. (5) Kidney lesion: Code(s): N28.9 - Disorder of kidney and ureter, unspecified Status: Acute Assessment and Plan: CT scan also showing unchanged indeterminate 1.8 cm left renal lesion statistically most likely to represent a proteinaceous/hemorrhagic cyst but differential includes renal cell carcinoma and would recommend follow-up pre and postcontrast MRI or CT. Since this was unchanged from prior scans listed, this issue was deferred to the primary care provider to determine if further imaging was warranted. DS: Summary Hospital Course Reason for hospitalization: 75yo female here for abdominal paiin and found to have acute diverticulitis. Please see H&P for details. Hospital Course: As above Time Spent with Patient Time attestation: Total time spent providing and/or coordinating discharge services: 34 minutes Time spent: Greater than 30 minutes Exam Narrative: Exam Narrative: AF 98.3 149/77 85 16 98% ra Gen - NARD Chest - CTA bilaterally CV - RRR S1/S2 Abd - soft, ND, +BS, mild right flank/abd pain Ext - no pedal edema. Psych - normal mood and affect. Skin - warm and dry. DS: Data Data Completed and Pending Labs on day of discharge: Preliminary micro results at discharge 05/21/20 10:27 Blood Culture - Preliminary Blood 05/21/20 10:23 Blood Culture - Preliminary Blood Discharge Plan Discharge Attending physician on discharge: Kieran Hernandez Consulting providers: Kenny Payne Discharging Clinician: Kieran Hernandez Anticipated Discharge Date/Time: 05/23/20 12:27 Patient Disposition: Home, Self-Care Activity: as tolerated Diet: low fiber Discharge Instructions: Please avoid large gathering, wear face coverings in public and practice social distance. Please complete your antibiotic course even if you are starting to feel well. Contact your doctor or come to the Emergency Room if you have any fevers, worsening abdominal pain, rectal bleeding or other worrisome symptoms. Follow-up with your doctor in 1-2 weeks. Please call for appointment. Follow up with Dr Payne in 2 weks Patient Instructions: Antibiotic Form, Piperacillin/Tazobactam (By injection), Diverticulitis (DC), Pain Management (DC) Stand Alone Forms: Gene
== END 2020-05-23 14:00 | disposition home or self-care (01) ==
LOC: ANHED 10:50 → ANH2MED 11:26
PROVIDERS: Admitting Provider Internal Medicine; Emergency Provider Emergency Medicine; PCP Family Medicine; Visit Provider Internal Medicine
DX: A41.9 Sepsis, unspecified organism (principal); R10.9 Unspecified abdominal pain; R10.31 Right lower quadrant pain; K57.92 Diverticulitis of intestine, part unspecified, without perforation or abscess without bleeding; N28.9 Disorder of kidney and ureter, unspecified; I10 Essential (primary) hypertension; K21.9 Gastro-esophageal reflux disease without esophagitis; D72.829 Elevated white blood cell count, unspecified; Z90.49 Acquired absence of other specified parts of digestive tract; Z29.9 Encounter for prophylactic measures, unspecified; E78.49 Other hyperlipidemia
CPT/HCPCS: 36415; 74177; 80053; 81001; 83605; 83690; 85025; 87040; 96361; 96365; 96366; 96372; 96375; 99285; A9270; G0378; J0131; J1650; J2543; J7030; J7120; Q9967

== ENCOUNTER 2020-08-06 00:38 | Outpatient (CLI) | payer MEDICARE, SELFPAY ==
[2020-08-06 18:38] LABS: SARS-CoV-2 RNA PCR Negative
== END 2020-08-06 00:39 | disposition home or self-care (01) ==
LOC: ANHCOVIDDT 00:38
PROVIDERS: PCP Family Medicine; Visit Provider Internal Medicine Gastroenterology
DX: Z01.812 Encounter for preprocedural laboratory examination (principal); Z20.828 Contact with and (suspected) exposure to other viral communicable diseases
CPT/HCPCS: C9803; U0003

== ENCOUNTER 2020-08-09 00:52 | Day surgery (SDC) | payer MEDICARE, SELFPAY ==
[2020-07-22 10:31] VITALS: BMI 33.2
--- NOTE | 2020-08-09 07:00 | WPDANESEPPF ---
Anes - Initial Pre Proc Eval Procedure: Operation Date: 08/09/20 10:00 Proposed Procedures p Colonoscopy - Kenny Payne MD Date/Time: 08/09/20 07:00 Surgeon: Kenny Payne MD Pre Op Diagnosis: diverticulitis Patient Data Age: 75 Gender: F Height: 1.52 m Weight: 77.2 kg Allergies Allergy/AdvReac Type Severity Reaction Status Date / Time lidocaine Allergy Severe SWELLING Verified 08/09/20 08:46 Home Medications Medication Instructions Recorded Confirmed Type latanoprost 0.005 % eye drops 1 drop EACH EYE HS 06/12/19 07/22/20 History brimonidine 0.1 % eye drops 1 drop EACH EYE Q8H 09/05/19 07/22/20 History netarsudil 0.02 % eye drops 1 drop EACH EYE QPM 09/05/19 07/22/20 History lisinopril 40 mg tablet 40 mg PO DAILY #90 tablet 02/19/20 07/22/20 Rx alprazolam 0.25 mg tablet 0.25 mg PO BID PRN #30 tablet 03/12/20 07/22/20 Rx simvastatin 40 mg PO DAILY 05/21/20 07/22/20 History metoprolol succinate 50 mg 50 mg PO HS #30 tablet 06/17/20 07/22/20 Rx tablet,extended release 24 hr polyethylene glycol 3350 17 gram 238 g PO DAILY #1 ea 06/30/20 Rx oral powder packet omeprazole 20 mg capsule,delayed 20 mg PO DAILY #90 cap 08/08/20 Rx release Patient hx anesthesia problems: none Family hx anesthesia problems: none PMFSH Past Medical History Medical History (Updated 08/05/20 @ 08:18 by Tato Da Silva DO) Anxiety Cataract left eye Diverticulosis with hx of diverticulitis Essential (primary) hypertension Gastro-esophageal reflux disease without esophagitis Glaucoma Hyperlipidemia Leukocytosis Lower abdominal pain Overweight (BMI 25.0-29.9) Varicosities of leg Surgical History Surgical History History of cholecystectomy 2010 Hx of hysterectomy for benign disease With bilateral oophorectomy Family History Family History Mother Family history of obesity Hypertension Sibling Carcinoma of colon Father Family history of coronary artery disease Social History Social History Social History: Lives at home with her . No pets. She drinks 1 alcoholic drink per month. Lifelong nonsmoker. No drug use. Full code. She nominated her to be the individual would make medical decisions for her if she is not able. Smoking status: Never smoker Second hand tobacco smoke exposure: Yes (as a child) Alcohol intake: current Drinks per week: 1 Substance use: never Substance use type: does not use Living arrangements: with family Gender identity (if verbalized by the patient): Female Spiritual care concerns: No Anes - Eval Final PreProcedure Day of Procedure 08/09/20 07:00 Patient weight: obese Heart: regular rate and rhythm Lungs: clear to auscultation and normal air movement Airway: Mallampati scale class II Neurological: alert and oriented Last oral intake: >/= 8 hours ASA classification: III Emergent: no Anesthetic plan: proceed Anesthesia type and monitoring: general GIVS and standard monitoring Informed Consent: The patient's anesthetic plan and its attendant risks and benefits were discussed with the patient/family/POA. Questions were solicited and answers provided to the satisfaction of the patient/family/POA.
[2020-08-09 08:48] VITALS: BP 148/88; PULSE 95; RESP 18; TEMP 36.5; O2SAT 100; BMI 33.0
[2020-08-09] MEDS: LACTATED RINGERS 1,000 ML 150 ML IV CONT (08:57)
--- NOTE | 2020-08-09 09:33 | PM.HPGS ---
History of Present Illness History of Present Illness Consent: Risks, benefits, and alternatives have been discussed and questions answered. Patient agrees to proceed with procedure. Chief complaint: diverticulitis Narrative: Klaudia Stafford is a 75 year old female with last colonoscopy 2012, few months ago with diverticulitis Review of Systems Constitutional: Constitutional: Denies headache(s) and Denies weakness Eyes: Eyes: Denies blurry vision ENT: Reports Normal hearing present, Denies headache(s) and Denies neck pain Cardiovascular: Cardiovascular: Denies chest pain and Denies dyspnea Respiratory: Respiratory: Denies dyspnea Gastrointestinal: Gastrointestinal: Reports no additional gastrointestinal complaints Genitourinary: Genitourinary: Denies dysuria Musculoskeletal: Musculoskeletal: Denies neck pain Integumentary/Breasts: Skin/Breast: Denies dry skin Neurologic: Reports Normal hearing present, Denies headache(s) and Denies weakness Psychiatric: Psychiatric: Denies anxiety Endocrine: Endocrine: Denies change in body appearance Hematologic/Lymphatic: Hematologic/Lymphatic: Denies easy bleeding Allergic/Immunologic: Allergic/Immunologic: Denies urticaria [facility] Past Medical History Medical History (Updated 08/05/20 @ 08:18 by Tato Da Silva DO) Anxiety Cataract left eye Diverticulosis with hx of diverticulitis Essential (primary) hypertension Gastro-esophageal reflux disease without esophagitis Glaucoma Hyperlipidemia Leukocytosis Lower abdominal pain Overweight (BMI 25.0-29.9) Varicosities of leg Surgical History Surgical History History of cholecystectomy 2010 Hx of hysterectomy for benign disease With bilateral oophorectomy Family History Family History Mother Family history of obesity Hypertension Sibling Carcinoma of colon Father Family history of coronary artery disease Social History Social History Social History: Lives at home with her . No pets. She drinks 1 alcoholic drink per month. Lifelong nonsmoker. No drug use. Full code. She nominated her to be the individual would make medical decisions for her if she is not able. Smoking status: Never smoker Second hand tobacco smoke exposure: Yes (as a child) Alcohol intake: current Drinks per week: 1 Substance use: never Substance use type: does not use Living arrangements: with family Gender identity (if verbalized by the patient): Female Spiritual care concerns: No Meds Home Medications and Allergies Home Medications Medication Instructions Recorded Confirmed Type latanoprost 0.005 % eye drops 1 drop EACH EYE HS 06/12/19 07/22/20 History brimonidine 0.1 % eye drops 1 drop EACH EYE Q8H 09/05/19 07/22/20 History netarsudil 0.02 % eye drops 1 drop EACH EYE QPM 09/05/19 07/22/20 History lisinopril 40 mg tablet 40 mg PO DAILY #90 tablet 02/19/20 07/22/20 Rx alprazolam 0.25 mg tablet 0.25 mg PO BID PRN #30 tablet 03/12/20 07/22/20 Rx simvastatin 40 mg PO DAILY 05/21/20 07/22/20 History metoprolol succinate 50 mg 50 mg PO HS #30 tablet 06/17/20 07/22/20 Rx tablet,extended release 24 hr polyethylene glycol 3350 17 gram 238 g PO DAILY #1 ea 06/30/20 Rx oral powder packet omeprazole 20 mg capsule,delayed 20 mg PO DAILY #90 cap 08/08/20 Rx release Allergies Allergy/AdvReac Type Severity Reaction Status Date / Time lidocaine Allergy Severe SWELLING Verified 08/09/20 08:46 Vital Signs Vital Signs - 24 hr 08/09/20 08:48 Temperature 97.7 F Pulse Rate 95 Respiratory Rate 18 Blood Pressure 148/88 H Pulse Oximetry 100 Exam Const: General: comfortable and no acute distress HENMT: General nose exam: Normal nares present Eyes: General: appearance normal, both eyes and all related structures Neck
[2020-08-09 09:59] VITALS: BP 123/64; PULSE 74; RESP 22; O2SAT 97
[2020-08-09 10:09] VITALS: BP 124/81; PULSE 78; RESP 19; O2SAT 99
[2020-08-09 10:19] VITALS: BP 127/78; PULSE 79; RESP 21; O2SAT 100
== END 2020-08-09 10:34 | disposition home or self-care (01) ==
PROVIDERS: PCP Family Medicine; Visit Provider Internal Medicine Gastroenterology
PROC: 0DJD8ZZ Inspection of Lower Intestinal Tract, Via Natural or Artificial Opening Endoscopic (ICD-10-PCS; CPT 45378; principal; 2020-08-09 10:00)
DX: K57.30 Diverticulosis of large intestine without perforation or abscess without bleeding (principal); D12.0 Benign neoplasm of cecum; K63.5 Polyp of colon; K64.8 Other hemorrhoids; I10 Essential (primary) hypertension; E78.5 Hyperlipidemia, unspecified; K21.9 Gastro-esophageal reflux disease without esophagitis; F41.9 Anxiety disorder, unspecified; H26.9 Unspecified cataract; E66.9 Obesity, unspecified; Z68.33 Body mass index [BMI] 33.0-33.9, adult
CPT/HCPCS: 45385; 88305; J2704; J7120

== ENCOUNTER 2022-04-07 19:41 | Emergency (ER) | payer MEDICARE, SELFPAY ==
--- NOTE | ~2022-04-07 | CT_ITS ---
EXAMINATION: CT brain wo con DATE: 04/07/2022 20:27 INDICATION: Headache and hypertension TECHNIQUE: Computed tomography (CT) of the head was performed without intravenous contrast. Sagittal and coronal reconstructions were performed. The mA was adjusted according to patient size. Iterative reconstruction technique was employed. The dose-length product was 605.33 mGy-cm. COMPARISON: head CT dated 11/27/2018 FINDINGS: No acute intracranial hemorrhage, acute infarction or abnormal extra axial fluid collection. There is mild scattered white matter hypoattenuation consistent with chronic small vessel ischemic disease. Ventricles are normal and symmetric. No mass/mass effect. Gas and dependently layering fluid within t he left globe. The orbits are otherwise normal with no inflammatory stranding. Paranasal sinuses and mastoid air cells are normal. IMPRESSION: 1. Mild scattered white matter hypoattenuation consistent with chronic small vessel ischemic disease. No acute intracranial process. 2. Gas and air within the left globe which is of indeterminate etiology. Correlate with ophthalmic hi story. Reviewed, dictated and finalized at location A. IMPRESSION: 1. Mild scattered white matter hypoattenuation consistent with chronic small ve ssel ischemic disease. No acute intracranial process. 2. Gas and air within the left globe which is of indeterminate etiology. Correl ate with ophthalmic history.
[2022-04-07 19:45] VITALS: BP 179/80; PULSE 96; RESP 20; TEMP 36.6; O2SAT 100
--- NOTE | 2022-04-07 20:36 | ED.RECABL ---
HPI - Recheck/Abnormal Lab/Rx General Chief Complaint: Recheck/Abnormal Lab/Rx Stated Complaint: high blood pressure Time Seen by Provider: 04/07/22 20:11 Source: patient Mode of arrival: ambulatory Limitations: no limitations History of Present Illness HPI narrative: This is a 76 year old female that presents to the ER for elevated blood pressure. Reports she was getting readings of 170s-190s. Reports a headache that has now resolved. She was taken off of HCTZ this week and Amlodipine was added. She also takes Metoprolol. Reports she has been taking her medications as prescribed. Denies chest pain or shortness of breath. Related Data Home Medications Medication Instructions Recorded Confirmed latanoprost 0.005 % eye drops 1 drop ophthalmic (eye) HS 06/12/19 04/05/22 (Xalatan) netarsudil 0.02 % eye drops 1 drop ophthalmic (eye) QPM 09/05/19 04/05/22 (Rhopressa) cholecalciferol (vitamin D3) 25 25 mcg PO DAILY 08/19/20 04/05/22 mcg (1,000 unit) capsule antiox.multivit 10-mafpo9o 280 cap PO 07/25/21 04/05/22 mg-lutein 10 mg-zeaxanthin 2 mg capsule omeprazole 20 mg capsule,delayed 20 mg PO BID 04/05/22 04/05/22 release Allergies Allergy/AdvReac Type Severity Reaction Status Date / Time lidocaine Allergy Severe SWELLING Verified 04/07/22 19:48 Review of Systems Review of Systems: CONSTITUTIONAL: Denies fever CARDIOVASCULAR: Denies chest pain, or edema. RESPIRATORY: Denies dyspnea. NEUROLOGIC: Reports headache. Denies numbness, or weakness. All systems reviewed & are unremarkable except as noted in HPI and below PMFSH Past Medical History Medical History Anxiety Body mass index (BMI) of 30 to 39 in adult Cataract left eye Diverticulosis with hx of diverticulitis Encounter for monitoring diuretic therapy Essential (primary) hypertension Gastro-esophageal reflux disease without esophagitis Glaucoma Hyperlipidemia Leukocytosis Lower abdominal pain Overweight (BMI 25.0-29.9) Varicosities of leg Surgical History Surgical History History of cholecystectomy 2011 Hx of hysterectomy for benign disease With bilateral oophorectomy Family History Family History Mother Family history of obesity Hypertension Sibling Carcinoma of colon Father Family history of coronary artery disease Social History Social History Social History: Lives at home with her . No pets. She drinks 1 alcoholic drink per month. Lifelong nonsmoker. No drug use. Full code. She nominated her to be the individual would make medical decisions for her if she is not able. Smoking status: Never smoker Second hand tobacco smoke exposure: Yes (as a child) Alcohol intake: current Drinks per week: 1 Substance use: never Substance use type: does not use Gender identity (if verbalized by the patient): Female Spiritual care concerns: No Exam Narrative: GENERAL: Well-appearing, well-nourished, and in no acute distress. HEAD: Normocephalic, atraumatic. EYES: EOMI. left pupil is larger than the left and nonreactive, patient reports this is due to her recent procedure for retinal detachment ENT: Nares clear, no rhinorrhea or epistaxis. Mucous membranes moist. Oropharynx without tonsillar hypertrophy exudate or other lesions. Bilateral TMs pearly nevarez non-bulging NECK: Supple. No adenopathy or masses. CHEST: Clear to auscultation. No respiratory distress. No wheezes rales or rhonchi HEART: Regular rate and rhythm. No murmur heard. Normal peripheral pulses. ABDOMEN: Soft, nontender, nondistended, normal active bowel sounds. EXTREMITIES: Normal range of motion. No edema. SKIN: Warm, dry, no rash. NEURO: No focal deficits. Alert and oriented x3. Cranial nerves II through XII grossl
[2022-04-07 21:46] LABS: Anion Gap 13 mmol/L (8-16); Blood Urea Nitrogen 22 mg/dL (7-17); Carbon Dioxide 28 mmol/L (22-30); Chloride 91 mmol/L (98-107); Estimated Glomerular Filt Rate 43; Glucose 100 mg/dL (65-110); Sodium 132 mmol/L (137-145)
[2022-04-07 21:57] LABS: Basophils Absolute Auto 0.1 K/mm3 (0.0-0.1); Basophils Percent Auto 0.8 % (0.2-1.2); Eosinophils Absolute Auto 0.2 K/mm3 (0-0.3); Hematocrit 36.5 % (37.0-47.0); Hemoglobin 12.3 g/dL (12.0-15.0); Immature Granulocyte Absolute 0.02 K/mm3 (0.00-0.031); Immature Granulocyte Percent A 0.2 % (0-0.5); Lymphocytes Absolute Auto 2.35 K/mm3 (0.9-3.2); Lymphocytes Percent Auto 24.2 % (18.3-44.2); Mean Corpuscular HGB Conc 33.7 g/dl (32-36); Mean Platelet Volume 8.7 fl (7.4-10.4); Monocytes Absolute Auto 1.1 K/mm3 (0.1-0.6); Monocytes Percent Auto 11.1 % (2.6-8.5); Neutrophils Percent Auto 61.7 % (45.5-73.1); Platelet Count Result 310 k/mm3 (150-375); Red Cell Distribution Width 12.8 % (11.5-14.5); White Blood Count 9.7 K/mm3 (4.5-10.0)
[2022-04-07 22:18] VITALS: BP 157/85; PULSE 78; RESP 18; O2SAT 99
== END 2022-04-07 23:00 | disposition home or self-care (01) ==
PROVIDERS: Physician Assistant; Emergency Provider Emergency Medicine; PCP Family Medicine
DX: I10 Essential (primary) hypertension (principal); K21.9 Gastro-esophageal reflux disease without esophagitis; E78.5 Hyperlipidemia, unspecified; H40.9 Unspecified glaucoma; H26.9 Unspecified cataract
CPT/HCPCS: 36415; 70450; 80048; 85025; 99284

== ENCOUNTER 2022-07-25 11:12 | Emergency (ER) | payer MEDICARE, SELFPAY ==
--- NOTE | ~2022-07-25 | XR_ITS ---
Clinical Indication: Dizziness PA and lateral views of the chest: Comparison: 02/17/2018 Findings: The lungs are clear, without evidence of focal consolidation or pleural effusion. Cardiome diastinal silhouette is within normal limits. Bones and soft tissues are unremarkable. Impression: Normal chest. Reviewed, dictated and finalized at [facility]. MILLING MACHINE TENDER Impression: Normal chest.
--- NOTE | ~2022-07-25 | CT_ITS ---
Non-contrast Head CT History: Dizziness COMPARISON: 04/07/2022 Technique: Axial non-contrast imaging of the brain was performed. Dose reduction technique was used on this scan by utilizing automated exposure control and iterative reconstruction technique. The dose -length product (DLP) was 605.33 mGy-cm. Findings: There is no evidence of intracranial hemorrhage, mass lesion, or acute infarct. Brain par enchyma appears normal. The ventricles and subarachnoid spaces are normal in size. The calvarium ap pears normal. The visualized paranasal sinuses and mastoid air cells are clear. Impression: No significant abnormality seen. Reviewed, dictated and finalized at location . BIN OPERATOR Impression: No significant abnormality seen.
[2022-07-25 11:21] VITALS: BP 162/79; PULSE 90; RESP 18; TEMP 36.7; O2SAT 99
--- NOTE | 2022-07-25 11:29 | ECG_ITS ---
Measurements Intervals Newcomb Rate: 78 P: 51 ND: 149 QRS: 14 QRSD: 87 T: 4 QT: 366 QTc: 417 Interpretive Statements SINUS RHYTHM LOW QRS VOLTAGE IN PRECORDIAL LEADS [QRS DEFLECTION < 1.0 mV IN CHEST LEADS] COMPARED TO ECG 10/28/2018 05:59:42 NO SIGNIFICANT CHANGES Electronically Signed On 07-25-2022 15:35:38 [employer] by Mary Garcia M.D.
--- NOTE | 2022-07-25 11:34 | ED.DIZZY ---
HPI - Dizziness General Chief Complaint: Dizziness Stated Complaint: Dizzy Time Seen by Provider: 07/25/22 11:27 Source: patient Mode of arrival: ambulatory Limitations: no limitations History of Present Illness HPI Narrative: This is a 77-year-old female that presents to the emergency department for dizziness ongoing since this morning. Reports she was seated looking at her computer. She suddenly felt dizzy/lightheaded. She took her blood pressure and it was quite elevated which prompted her to be seen. She did take her home antihypertensives this morning. She still reports some mild lightheadedness and feelings of being off balance. She does report she has had problems with vertigo in the past. Denies fever, visual changes, chest pain, shortness of breath, vomiting, or focal numbness or weakness. Related Data Home Medications Medication Instructions Recorded Confirmed latanoprost 0.005 % eye drops 1 drop ophthalmic (eye) HS 06/12/19 07/11/22 (Xalatan) netarsudil 0.02 % eye drops 1 drop ophthalmic (eye) QPM 09/05/19 07/11/22 (Rhopressa) cholecalciferol (vitamin D3) 25 25 mcg PO DAILY 08/19/20 07/11/22 mcg (1,000 unit) capsule antiox.multivit [id number] 280 cap PO 07/25/21 07/11/22 mg-lutein 10 mg-zeaxanthin 2 mg capsule Allergies Allergy/AdvReac Type Severity Reaction Status Date / Time lidocaine Allergy Severe SWELLING Verified 07/11/22 08:36 Review of Systems Review of Systems: CONSTITUTIONAL: Denies fever EYES: Denies visual changes ENT: Denies congestion, sore throat CARDIOVASCULAR: Denies chest pain, or edema. RESPIRATORY: Denies dyspnea. GASTROINTESTINAL: Denies vomiting NEUROLOGIC: Denies headache, numbness, or weakness. All systems reviewed & are unremarkable except as noted in HPI and below PMFSH Past Medical History Medical History Anxiety Body mass index (BMI) of 30 to 39 in adult Cataract left eye Diverticulosis with hx of diverticulitis Encounter for monitoring diuretic therapy Essential (primary) hypertension Gastro-esophageal reflux disease without esophagitis Glaucoma Hyperlipidemia Leukocytosis Lower abdominal pain Overweight (BMI 25.0-29.9) Varicosities of leg Surgical History Surgical History History of cholecystectomy 2011 Hx of hysterectomy for benign disease With bilateral oophorectomy Family History Family History Mother Family history of obesity Hypertension Sibling Carcinoma of colon Father Family history of coronary artery disease Social History Social History (Updated 07/11/22 @ 08:26 by Laura Chand [facility]) Social History: Lives at home with her . No pets. She drinks 1 alcoholic drink per month. Lifelong nonsmoker. No drug use. Full code. She nominated her to be the individual would make medical decisions for her if she is not able. Smoking status: Never smoker Second hand tobacco smoke exposure: Yes (as a child) Alcohol intake: current Drinks per week: 1 Substance use: never Substance use type: does not use Lack of Transportation: No Lack of Food: Never True Current Housing: I Have Housing Concerned About Future Housing: No Difficulty Paying Gas/Electric Bills: No Difficulty Paying for Meds: No Currently Unemployed: No Education: High School Diploma/GED Difficulty w/ Childcare or Family Care: No Gender identity (if verbalized by the patient): Female Spiritual care concerns: No Agree to blood products: Yes Exam Narrative: GENERAL: Elderly, well-nourished, and in no acute distress. HEAD: Normocephalic, atraumatic. EYES: PERRLA and EOMI. ENT: Nares clear, no rhinorrhea or epistaxis. Mucous membranes moist. Oropharynx without tonsillar hypertrophy exudate or other lesions. Bilateral TMs pearly nevarez non-bulgi
[2022-07-25 12:36] LABS: Basophils Absolute Auto 0.1 K/mm3 (0.0-0.1); Basophils Percent Auto 0.9 % (0.2-1.2); Eosinophils Absolute Auto 0.2 K/mm3 (0-0.3); Eosinophils Percent Auto 2.1 % (0-4.4); Hematocrit 38.8 % (37.0-47.0); Immature Granulocyte Absolute 0.02 K/mm3 (0.00-0.031); Immature Granulocyte Percent A 0.3 % (0-0.5); Lymphocytes Absolute Auto 1.07 K/mm3 (0.9-3.2); Lymphocytes Percent Auto 14.3 % (18.3-44.2); Mean Corpuscular HGB Conc 33.5 g/dl (32-36); Mean Corpuscular Hemoglobin 29.5 pg (26-34); Mean Platelet Volume 8.6 fl (7.4-10.4); Monocytes Absolute Auto 0.7 K/mm3 (0.1-0.6); Monocytes Percent Auto 8.7 % (2.6-8.5); Neutrophils Absolute Auto 5.5 K/mm3 (1.3-6.7); Neutrophils Percent Auto 73.7 % (45.5-73.1); Platelet Count Result 376 k/mm3 (150-375); Red Blood Count 4.41 M/mm3 (4.2-5.4); Red Cell Distribution Width 12.8 % (11.5-14.5); White Blood Count 7.5 K/mm3 (4.5-10.0)
[2022-07-25 12:51] LABS: Alanine Aminotransferase 25 U/L (6-35); Albumin Level 4.5 g/dL (3.5-5.1); Alkaline Phosphatase 70 U/L (38-126); Anion Gap 8 mmol/L (8-16); Aspartate Amino Transferase 26 U/L (14-36); Bilirubin,Total 0.3 mg/dL (0.2-1.3); Blood Urea Nitrogen 15 mg/dL (7-17); Calcium 9.5 mg/dL (8.4-10.2); Carbon Dioxide 28 mmol/L (22-30); Chloride 101 mmol/L (98-107); Estimated CRCL calculation 46 ml/min; Estimated Glomerular Filt Rate > 60; Glucose 117 mg/dL (65-110); Potassium 4.1 mmol/L (3.4-5.0); Sodium 137 mmol/L (137-145)
[2022-07-25 15:28] LABS: Add Urine Microscopic? YES; Appearance Urine Clear (Clear); Bilirubin Urine Negative (Negative); Blood Urine 1+ (Negative); Color Urine Light Yellow (Yellow); Glucose Urine UA Negative (Negative); Ketones Urine Negative (Negative); Leukocyte Esterase Ur Trace LEU/UL (Negative); Nitrate Urine Negative (Negative); Protein Urine Negative (Negative); Urobilinogen Urine 0.2 mg/dL (<2.0); pH Urine 6.5 (5.0-9.0)
[2022-07-25 15:30] LABS: Bacteria Urine Trace /hpf; RBC Urine 0-2 /hpf (0-2); Squamous Epithelial Cell Urine Rare /hpf (Few)
== END 2022-07-25 16:23 | disposition home or self-care (01) ==
LOC: ANHED 16:10
PROVIDERS: Emergency Provider Physician Assistant; PCP Family Medicine
DX: R42 Dizziness and giddiness (principal); I10 Essential (primary) hypertension; E78.5 Hyperlipidemia, unspecified; K21.9 Gastro-esophageal reflux disease without esophagitis; H40.9 Unspecified glaucoma; E66.3 Overweight; Z68.33 Body mass index [BMI] 33.0-33.9, adult; Z90.710 Acquired absence of both cervix and uterus; Z90.722 Acquired absence of ovaries, bilateral; Z77.22 Contact with and (suspected) exposure to environmental tobacco smoke (acute) (chronic)
CPT/HCPCS: 36415; 70450; 71046; 80053; 81001; 85025; 93005; 99284

== ENCOUNTER 2022-09-22 22:30 | Emergency (ER) | payer MEDICARE, SELFPAY ==
--- NOTE | ~2022-09-22 | XR_ITS ---
EXAMINATION: XR chest 2V 09/22/2022 23:56 INDICATION: Tachycardia PROCEDURE: 2 view chest COMPARISON: Comparison to multiple prior studies sequentially, with oldest reviewed study dated 07/07. FINDINGS: The lungs are clear. The cardiomediastinal silhouette is within normal limits. There are no pleural effusions. There is no pneumothorax suspected. IMPRESSION: 1: NO ACUTE CARDIOPULMONARY DISEASE. Reviewed, dictated and finalized at location A. TENDER
[2022-09-22 22:33] VITALS: BP 180/81; PULSE 138; RESP 20; TEMP 36.7; O2SAT 100
--- NOTE | 2022-09-22 22:41 | ECG_ITS ---
Measurements Intervals [place] Rate: 123 P: 57 WV: 162 QRS: 33 QRSD: 90 T: 23 QT: 401 QTc: 575 Interpretive Statements SINUS TACHYCARDIA BASELINE ARTIFACT NONSPECIFIC ST & T-WAVE ABNORMALITY POOR R-WAVE PROGRESSION BORDERLINE ECG COMPARED TO ECG 07/25/2022 12:27:12 HEART RATE HAS INCREASED Electronically Signed On 09-23-2022 16:39:29 HAND DECORATOR by John Ramirez M.D.
[2022-09-22 23:05] VITALS: BP 155/78; PULSE 106; RESP 18; O2SAT 99
[2022-09-22 23:08] LABS: Basophils Absolute Auto 0.1 K/mm3 (0.0-0.1); Basophils Percent Auto 0.9 % (0.2-1.2); Eosinophils Absolute Auto 0.3 K/mm3 (0-0.3); Eosinophils Percent Auto 2.3 % (0-4.4); Hematocrit 37.4 % (37.0-47.0); Hemoglobin 12.9 g/dL (12.0-15.0); Immature Granulocyte Absolute 0.03 K/mm3 (0.00-0.031); Immature Granulocyte Percent A 0.3 % (0-0.5); Lymphocytes Absolute Auto 3.37 K/mm3 (0.9-3.2); Lymphocytes Percent Auto 31.1 % (18.3-44.2); Mean Corpuscular HGB Conc 34.5 g/dl (32-36); Mean Corpuscular Hemoglobin 29.9 pg (26-34); Mean Corpuscular Volume 86.6 fl (80-100); Mean Platelet Volume 8.9 fl (7.4-10.4); Monocytes Absolute Auto 1.3 K/mm3 (0.1-0.6); Monocytes Percent Auto 12.1 % (2.6-8.5); Neutrophils Absolute Auto 5.8 K/mm3 (1.3-6.7); Neutrophils Percent Auto 53.3 % (45.5-73.1); Platelet Count Result 334 k/mm3 (150-375); Red Blood Count 4.32 M/mm3 (4.2-5.4); Red Cell Distribution Width 13.7 % (11.5-14.5); White Blood Count 10.8 K/mm3 (4.5-10.0)
[2022-09-22] MEDS: SODIUM CHLORIDE 0.9% IV 2,000 ML 999 ML IV CONT (23:15)
[2022-09-22 23:17] LABS: Lactic Acid Reflex 1.6 mmol/L (0.7-2.0)
[2022-09-22 23:19] LABS: Alanine Aminotransferase 26 U/L (6-35); Albumin Level 4.7 g/dL (3.5-5.1); Alkaline Phosphatase 63 U/L (38-126); Anion Gap 8 mmol/L (8-16); Aspartate Amino Transferase 34 U/L (14-36); Bilirubin,Total 0.4 mg/dL (0.2-1.3); Blood Urea Nitrogen 18 mg/dL (7-17); Carbon Dioxide 26 mmol/L (22-30); Chloride 93 mmol/L (98-107); Estimated CRCL calculation 46 ml/min; Estimated Glomerular Filt Rate > 60; Glucose 129 mg/dL (65-110); Potassium 3.9 mmol/L (3.4-5.0); Sodium 127 mmol/L (137-145)
--- NOTE | 2022-09-22 23:25 | PC.NURSE ---
Report received from DARA Sanchez. Assumed care of patient at this time.
[2022-09-22 23:26] LABS: Lipase 137 U/L (23-300); Magnesium 1.8 mg/dL (1.6-2.3)
[2022-09-22 23:36] LABS: NT Pro B Type Natriuretic Pept 152 pg/mL (19.9-100); Troponin I < 0.012 ng/mL (0.000-0.034)
[2022-09-22 23:51] VITALS: O2SAT 100
[2022-09-22] MEDS: LORazepam INJ (*CRX) 2 MG/ML VIAL 0.5 MG IV PUSH (23:51)
[2022-09-22 23:52] VITALS: BP 154/82; O2SAT 100
[2022-09-23] VITALS (18 sets, daily range): BP systolic 112–150; BP diastolic 60–77; PULSE 74–102; RESP 14–20; O2SAT 96–100
[2022-09-23 00:07] LABS: Influenza A QL RT-PCR Negative (Negative); Influenza B QL RT-PCR Negative (Negative); RSV RNA, RT-PCR Negative (Negative); SARS-CoV-2 RNA PCR Negative
[2022-09-23 01:30] LABS: Appearance Urine Clear (Clear); Bilirubin Urine Negative (Negative); Blood Urine 1+ (Negative); Color Urine Yellow (Yellow); Glucose Urine UA Negative (Negative); Ketones Urine Negative (Negative); Leukocyte Esterase Ur Trace LEU/UL (Negative); Nitrate Urine Negative (Negative); Protein Urine Negative (Negative); Specific Grav Ur 1.015 (1.001-1.035); Urobilinogen Urine 0.2 mg/dL (<2.0); pH Urine 6.5 (5.0-9.0)
[2022-09-23 01:37] LABS: Squamous Epithelial Cell Urine Rare /hpf (Few); WBC Urine 0-3 /hpf
[2022-09-23 01:50] LABS: Add Urine Microscopic? YES
--- NOTE | 2022-09-23 02:04 | ED.GENADULT ---
HPI - General Adult General Chief complaint: Recheck/Abnormal Lab/Rx Stated complaint: blood pressure elevated, heart rate up Time Seen by Provider: 09/22/22 23:00 History of Present Illness HPI narrative: This is a 77-year-old female coming in today with a chief complaint of elevated blood pressure. Patient states that she started to feel funny earlier today. She checked her blood pressure and was elevated in the 180s over 110s. This made her very anxious as she has been trying to keep strict control of her blood pressure. She continuously repeated throughout the day and it was ranging from normal levels to almost 200. Patient also noted her heart rate was elevated at 122. Patient has been seen in the emergency room 3 times in last 5 months for elevated blood pressures. Patient does have anxiety and has been taking 0.25 of alprazolam of which he took 2 today which helped make her less anxious. Patient has noted that she has had chills in the afternoon but no fevers, chest pain difficulty breathing abdominal pain urinary symptoms diarrhea or any other complaints Related Data Home Medications Medication Instructions Recorded Confirmed latanoprost 0.005 % eye drops 1 drop ophthalmic (eye) HS 06/12/19 08/01/22 (Xalatan) netarsudil 0.02 % eye drops 1 drop ophthalmic (eye) QPM 09/05/19 08/01/22 (Rhopressa) cholecalciferol (vitamin D3) 25 25 mcg PO DAILY 08/19/20 08/01/22 mcg (1,000 unit) capsule antiox.multivit 10-yobwa3c 280 cap PO 07/25/21 08/01/22 mg-lutein 10 mg-zeaxanthin 2 mg capsule Allergies Allergy/AdvReac Type Severity Reaction Status Date / Time lidocaine Allergy Severe SWELLING Verified 08/01/22 11:27 [facility] Past Medical History Medical History Anxiety Body mass index (BMI) of 30 to 39 in adult Melyssa rash of groin Cataract left eye Chronic cough Diverticulitis Diverticulosis with hx of diverticulitis DVT prophylaxis Essential (primary) hypertension Gastro-esophageal reflux disease without esophagitis Glaucoma Hyperlipidemia Hyponatremia Overweight (BMI 25.0-29.9) Pruritus of both hands Sepsis Varicosities of leg Surgical History Surgical History History of cholecystectomy 2010 Hx of hysterectomy for benign disease With bilateral oophorectomy Family History Family History Mother Family history of obesity Hypertension Sibling Carcinoma of colon Father Family history of coronary artery disease Social History Social History Social History: Lives at home with her . No pets. She drinks 1 alcoholic drink per month. Lifelong nonsmoker. No drug use. Full code. She nominated her to be the individual would make medical decisions for her if she is not able. Smoking status: Never smoker Second hand tobacco smoke exposure: Yes (as a child) Alcohol intake: current Drinks per week: 1 Substance use: never Substance use type: does not use Lack of Transportation: No Lack of Food: Never True Current Housing: I Have Housing Concerned About Future Housing: No Difficulty Paying Gas/Electric Bills: No Difficulty Paying for Meds: No Currently Unemployed: No Education: High School Diploma/GED Difficulty w/ Childcare or Family Care: No Living arrangements: with family Occupation/Education: retired Gender identity (if verbalized by the patient): Female Spiritual care concerns: No Agree to blood products: Yes Exam Narrative: APPEARANCE: No apparent distress. patient appears anxious Head: atraumatic. EYES: EOMI, NOSE: Atraumatic NECK: Trachea midline RESPIRATORY: No increased rate of breathing, clear to auscultation CARDIOVASCULAR: tachycardic, no peripheral edema, ABDOMINAL: Non-distended soft nontender MUSCU
== END 2022-09-23 02:38 | disposition home or self-care (01) ==
PROVIDERS: Emergency Provider Emergency Medicine; PCP Family Medicine
DX: I10 Essential (primary) hypertension (principal); E86.0 Dehydration; F41.9 Anxiety disorder, unspecified; Z20.822 Contact with and (suspected) exposure to COVID-19; E78.5 Hyperlipidemia, unspecified; K21.9 Gastro-esophageal reflux disease without esophagitis; H40.9 Unspecified glaucoma; H26.9 Unspecified cataract; E66.3 Overweight; Z68.33 Body mass index [BMI] 33.0-33.9, adult; Z90.710 Acquired absence of both cervix and uterus; Z90.722 Acquired absence of ovaries, bilateral; Z77.22 Contact with and (suspected) exposure to environmental tobacco smoke (acute) (chronic); R00.0 Tachycardia, unspecified; R94.31 Abnormal electrocardiogram [ECG] [EKG]
CPT/HCPCS: 36415; 71046; 80053; 81001; 83605; 83690; 83735; 83880; 84443; 84484; 85025; 87040; 87637; 93005; 96361; 96365; 96375; 99284; J0131; J2060; J7030

== ENCOUNTER 2022-12-07 13:06 | Emergency (ER) | payer OTHER, MEDICARE, SELFPAY ==
--- NOTE | ~2022-12-07 | CT_ITS ---
EXAMINATION:CT diagnostic chest w con DATE: 12/07/2022 15:27 INDICATION: Left chest injury. TECHNIQUE: Computed tomography (CT) of the chest was performed with 75 mL Omnipaque 350 intravenous c ontrast. Automated exposure control and iterative reconstruction technique were employed. The dose-le ngth product (DLP) was 557.11 mGy-cm. COMPARISON: Chest CT 02/17/2018 FINDINGS: There is mild scarring at the lung apices. There is mild atelectasis bilaterally. No pleura l effusion. There is a small sliding hiatal hernia. The heart size is normal. No pericardial effusion . There are coronary artery calcifications. There are changes of cholecystectomy. There are cysts in the kidneys measuring up to 5.0 cm on the left. There are hemangiomas in T2, T3, T11, and T12 vertebr al bodies. There is mild thoracic spondylosis. IMPRESSION: 1. No posttraumatic findings. 2. Small sliding hiatal hernia. Reviewed, dictated and finalized at location A.
--- NOTE | ~2022-12-07 | CT_ITS ---
EXAMINATION: CT brain wo con DATE: 12/07/2022 15:26 INDICATION: Head injury. TECHNIQUE: Computed tomography (CT) of the head was performed without intravenous contrast. The mA wa s adjusted according to patient size. Iterative reconstruction technique was employed. The dose-lengt h product was 605.33 mGy-cm. COMPARISON: Head CT 07/25/2022 FINDINGS: There are scattered areas of low attenuation in the cerebral white matter. There is no intr acranial hemorrhage, acute infarction, or abnormal intracranial mass lesion. The ventricles are monse l in size. There are likely changes of left ocular lens replacement surgery. There is left forehead s oft tissue swelling. There is mild mucosal thickening in the paranasal sinuses. The mastoid air cells are normal. There is cerumen in right external auditory canal. IMPRESSION: 1. Stable moderate nonspecific cerebral white matter disease, which likely represents chronic small v essel ischemic disease. Reviewed, dictated and finalized at location A. IMPRESSION: 1. Stable moderate nonspecific cerebral white matter disease, which likely repr esents chronic small vessel ischemic disease.
--- NOTE | ~2022-12-07 | CT_ITS ---
EXAMINATION: CT cervical spine wo con DATE: 12/07/2022 15:26 INDICATION: Head injury. TECHNIQUE: Computed tomography (CT) of the cervical spine was performed without intravenous contrast. Automated exposure control and iterative reconstruction technique were employed. The dose-length pro duct was 224.21 mGy-cm. COMPARISON: None FINDINGS: There is 3 degrees dextrocurvature of cervical spine. Vertebral body heights are normal. Th ere are hemangiomas in T2 and T3 vertebral bodies. There is moderately decreased disc height at C5-C6 and C6-C7. The following disc levels are specifically discussed: C2-C3: There is no uncovertebral joint osteoarthritis. There is mild right and severe left facet join t osteoarthritis. There is mild left neural foraminal stenosis. There is no central canal stenosis. C3-C4: There is mild right and moderate left uncovertebral joint osteoarthritis. There is mild right and severe left facet joint osteoarthritis. There is mild left neural foraminal stenosis. There is no central canal stenosis. C4-C5: There is mild bilateral uncovertebral joint osteoarthritis. There is severe right and mild lef t facet joint osteoarthritis. There is mild right neural foraminal stenosis. There is no central ciro l stenosis. C5-C6: There is severe bilateral uncovertebral joint osteoarthritis. There is mild bilateral facet edin int osteoarthritis. There is mild right and moderate left neural foraminal stenosis. There is mild ce ntral canal stenosis. C6-C7: There is mild right and severe left uncovertebral joint osteoarthritis. There is mild bilatera l facet joint osteoarthritis. There is moderate left neural foraminal stenosis. There is mild central canal stenosis. C7-T1: There is no uncovertebral joint osteoarthritis. There is moderate right and mild left facet edin int osteoarthritis. There is no neural foraminal stenosis. There is no central canal stenosis. IMPRESSION: 1. No fracture. 2. Moderate cervical spondylosis. Reviewed, dictated and finalized at location A.
[2022-12-07 13:06] VITALS: BP 186/75; PULSE 77; RESP 19; TEMP 36.5; O2SAT 100
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
[2022-12-07 14:57] LABS: Estimated Glomerular Filt Rate 60
== END 2022-12-07 16:16 | disposition home or self-care (01) ==
PROVIDERS: Emergency Provider Physician Assistant; PCP Family Medicine
DX: S00.83XA Contusion of other part of head, initial encounter (principal); I10 Essential (primary) hypertension; K21.9 Gastro-esophageal reflux disease without esophagitis; H40.9 Unspecified glaucoma; E78.5 Hyperlipidemia, unspecified; F41.9 Anxiety disorder, unspecified; E66.3 Overweight; Z90.710 Acquired absence of both cervix and uterus; Z90.722 Acquired absence of ovaries, bilateral; K44.9 Diaphragmatic hernia without obstruction or gangrene; V49.40XA Driver injured in collision with unspecified motor vehicles in traffic accident, initial encounter
CPT/HCPCS: 36415; 70450; 71260; 72125; 82565; 99284; Q9967

== ENCOUNTER 2023-10-11 19:08 | Emergency (ER) | payer MEDICARE, SELFPAY ==
--- NOTE | ~2023-10-11 | XR_ITS ---
EXAMINATION: XR chest 2V DATE: 10/11/2023 20:20 INDICATION: Jaw tightness. TECHNIQUE: Frontal and lateral views of the chest were obtained. COMPARISON: Chest 2 views 09/22/2022, chest CT 12/07/2022 FINDINGS: There is no pneumonia, pleural effusion, or pneumothorax. The heart size is normal. Surgica l clips in the right upper quadrant are likely from cholecystectomy. IMPRESSION: 1. No acute cardiopulmonary disease. Reviewed, dictated and finalized at location E. DING MACHINE OPERATOR
--- NOTE | 2023-10-11 19:09 | ECG_ITS ---
Measurements Intervals [place] Rate: 94 P: 52 SC: 146 QRS: 24 QRSD: 93 T: 24 QT: 358 QTc: 448 Interpretive Statements SINUS RHYTHM CONSIDER INFERIOR INFARCT, AGE INDETERMINATE BASELINE ARTIFACT- I, II, III, AVR, AVL, AVF ABNORMAL ECG COMPARED TO ECG 09/22/2022 22:49:57 SINUS RHYTHM NOW PRESENT Electronically Signed On 10-11-2023 19:17:58 ESCORT CAR DRIVER by Kan Rojas D.O.
[2023-10-11 19:57] VITALS: BP 172/72; PULSE 93; RESP 18; TEMP 36.6; O2SAT 98
--- NOTE | 2023-10-11 20:05 | PC.NURSE ---
Pt also verbalized a new sob while walking.
[2023-10-11 20:32] LABS: Basophils Absolute Auto 0.1 K/mm3 (0.0-0.1); Eosinophils Absolute Auto 0.3 K/mm3 (0-0.3); Eosinophils Percent Auto 4.1 % (0-4.4); Hematocrit 41.1 % (37.0-47.0); Hemoglobin 13.6 g/dL (12.0-15.0); Immature Granulocyte Absolute 0.01 K/mm3 (0.00-0.031); Immature Granulocyte Percent A 0.1 % (0-0.5); Lymphocytes Absolute Auto 1.85 K/mm3 (0.9-3.2); Lymphocytes Percent Auto 23.5 % (18.3-44.2); Mean Corpuscular HGB Conc 33.1 g/dl (32-36); Mean Corpuscular Hemoglobin 29.9 pg (26-34); Mean Corpuscular Volume 90.3 fl (80-100); Mean Platelet Volume 9.8 fl (7.4-10.4); Monocytes Absolute Auto 0.8 K/mm3 (0.1-0.6); Monocytes Percent Auto 9.5 % (2.6-8.5); Neutrophils Absolute Auto 4.9 K/mm3 (1.3-6.7); Neutrophils Percent Auto 61.8 % (45.5-73.1); Platelet Count Result 291 k/mm3 (150-375); Red Blood Count 4.55 M/mm3 (4.2-5.4); Red Cell Distribution Width 12.8 % (11.5-14.5); White Blood Count 7.9 K/mm3 (4.5-10.0)
[2023-10-11 20:43] LABS: Prothrombin Time 13.3 Seconds (11.1-14.7)
[2023-10-11 20:44] LABS: Partial Thromboplastin Time 35.3 SECONDS (22.3-36.8)
[2023-10-11 20:48] LABS: Alanine Aminotransferase 22 U/L (6-35); Albumin Level 4.4 g/dL (3.5-5.1); Alkaline Phosphatase 68 U/L (38-126); Anion Gap 7 mmol/L (8-16); Aspartate Amino Transferase 26 U/L (14-36); Bilirubin,Total 0.4 mg/dL (0.2-1.3); Blood Urea Nitrogen 17 mg/dL (7-17); Calcium 9.7 mg/dL (8.4-10.2); Carbon Dioxide 24 mmol/L (22-30); Chloride 106 mmol/L (98-107); Estimated CRCL calculation 41 ml/min; Estimated Glomerular Filt Rate 60; Glucose 178 mg/dL (65-110); Lipase 98 U/L (23-300); Potassium 3.7 mmol/L (3.4-5.0); Sodium 137 mmol/L (137-145)
[2023-10-11 21:00] LABS: Troponin I < 0.012 ng/mL (0.000-0.034)
--- NOTE | 2023-10-11 23:33 | ECG_ITS ---
Measurements Intervals [place] Rate: 84 P: 50 AR: 155 QRS: 12 QRSD: 86 T: 11 QT: 370 QTc: 440 Interpretive Statements SINUS RHYTHM CONSIDER INFERIOR INFARCT, AGE INDETERMINATE BASELINE ARTIFACT- I, II, III, AVR, AVL, AVF ABNORMAL ECG COMPARED TO ECG 10/11/2023 19:13:51 NO SIGNIFICANT CHANGES Electronically Signed On 10-12-2023 15:41:24 ZIPPER SETTER CHAINSTITCH by Kan Rojas D.O.
[2023-10-12] VITALS (13 sets, daily range): BP systolic 131–183; BP diastolic 68–110; PULSE 65–98; RESP 12–21; O2SAT 97–99
[2023-10-12 00:20] LABS: Troponin I < 0.012 ng/mL (0.000-0.034)
--- NOTE | 2023-10-12 02:11 | ECG_ITS ---
Measurements Intervals [place] Rate: 70 P: 57 TN: 158 QRS: 16 QRSD: 81 T: 25 QT: 383 QTc: 415 Interpretive Statements SINUS RHYTHM LOW QRS VOLTAGE IN PRECORDIAL LEADS BASELINE ARTIFACT- II, III, AVF BORDERLINE ECG COMPARED TO ECG 10/11/2023 23:33:19 NO SIGNIFICANT CHANGES Electronically Signed On 10-12-2023 6:39:22 CUPOLA MELTER HELPER by Kan Rojas D.O.
--- NOTE | 2023-10-12 02:15 | ED.GENADULT ---
HPI - General Adult General Chief complaint: Unspecified Stated complaint: tightness in jaw Time Seen by Provider: 10/12/23 01:16 History of Present Illness HPI narrative: Patient is an 78-year-old female who presents to the emergency department at this evening complaining of jaw pain which started late afternoon. Patient states that she is aware that that could be a symptom of a heart attack and decided to come to the emergency department for further evaluation. She denies any chest pain and is currently having no chest pain. Patient also denies any shortness of breath, however, she states that recently she has noticed that when she exerts herself she does get a little short of breath. Patient denies any history of cardiovascular disease and any previous MIs. Her only past medical history significant for high blood pressure and hyperlipidemia. Patient denies ever seeing rn advice or needing a stress test. She is currently denying any additional symptoms at this time. There are no other modifying, alleviating, or precipitating factors at this time. Related Data Home Medications Medication Instructions Recorded Confirmed cholecalciferol (vitamin D3) 25 25 mcg PO DAILY 08/19/20 06/13/23 mcg (1,000 unit) capsule antiox.multivit 10-npapd3t 280 cap PO 07/25/21 06/13/23 mg-lutein 10 mg-zeaxanthin 2 mg capsule dorzolamide 2 %-timolol 0.5 % (PF) 1 drp EACH EYE BID 11/15/22 06/13/23 eye drops Allergies Allergy/AdvReac Type Severity Reaction Status Date / Time lidocaine Allergy Severe SWELLING Verified 10/11/23 19:08 Review of Systems Review of Systems: All systems are reviewed and are negative unless stated otherwise in the HPI. [facility] Past Medical History Medical History Anxiety Body mass index (BMI) of 30 to 39 in adult Melyssa rash of groin Cataract left eye Chronic cough Diverticulitis Diverticulosis with hx of diverticulitis DVT prophylaxis Essential (primary) hypertension Gastro-esophageal reflux disease without esophagitis Glaucoma Hyperlipidemia Hyponatremia Overweight (BMI 25.0-29.9) Pruritus of both hands Sepsis Varicosities of leg Surgical History Surgical History History of cholecystectomy 2010 Hx of hysterectomy for benign disease With bilateral oophorectomy Family History Family History Mother Family history of obesity Hypertension Sibling Carcinoma of colon Father Family history of coronary artery disease Social History Social History Social History: Lives at home with her . No pets. She drinks 1 alcoholic drink per month. Lifelong nonsmoker. No drug use. Full code. She nominated her to be the individual would make medical decisions for her if she is not able. Smoking status: Never smoker Second hand tobacco smoke exposure: Yes (as a child) Alcohol intake: current Drinks per week: 1 Substance use: never Substance use type: does not use Lack of Transportation: No Lack of Food: Never True Current Housing: I Have Housing Concerned About Future Housing: No Difficulty Paying Gas/Electric Bills: No Difficulty Paying for Meds: No Currently Unemployed: No Education: High School Diploma/GED Difficulty w/ Childcare or Family Care: No Living arrangements: with family Occupation/Education: retired Gender identity (if verbalized by the patient): Female Spiritual care concerns: No Agree to blood products: Yes Exam Narrative: General: Alert, awake, afebrile, in no acute distress. HEENT: PERRL, no rhinorrhea, no post nasal drip, oropharynx clear. Neck: Trachea midline, no JVD, no lymphadenopathy. Cardiovascular: Regular rate and rhythm, no murmurs, rubs or gallops, no peripheral edema. Res
[2023-10-12 03:00] LABS: Troponin I < 0.012 ng/mL (0.000-0.034)
== END 2023-10-12 03:17 | disposition home or self-care (01) ==
PROVIDERS: Emergency Provider Emergency Medicine; PCP Family Medicine
DX: R06.00 Dyspnea, unspecified (principal); R68.84 Jaw pain; E78.5 Hyperlipidemia, unspecified; I10 Essential (primary) hypertension
CPT/HCPCS: 36415; 71046; 80053; 83690; 84484; 85025; 85610; 85730; 93005; 99284